=== PATIENT | male | born 1970 | race Caucasian/White ===

== ENCOUNTER 2024-08-05 10:04 | Inpatient (IN) | payer OTHER ==
[~2024-08-05] VITALS: Ht 170.2 cm; Wt 105.8 kg
[2024-08-05] VITALS (18 sets, daily range): BP systolic 122–190; BP diastolic 87–133
[~2024-08-05 10:04] MED LIST: ACYC800 PO
[2024-08-05 10:57] LABS: BASOPHILS ABSOLUTE AUTO 0.06 K/mm3 (0.00-0.23); BASOPHILS PERCENT AUTO 1 % (0-2); EOSINOPHILS ABSOLUTE AUTO 0.18 K/mm3 (0.00-0.68); EOSINOPHILS PERCENT AUTO 2 % (0-6); Hematocrit 46.3 % (37.0-53.0); Hemoglobin 16.3 g/dL (13.5-17.5); IMMATURE GRAN ABSOLUTE AUTO 0.03 K/mm3 (0.00-0.10); IMMATURE GRAN PERCENT AUTO 0 % (0-1); LYMPHOCYTES ABSOLUTE AUTO 1.72 K/mm3 (0.84-5.20); LYMPHOCYTES PERCENT AUTO 23 % (21-46); MONOCYTES ABSOLUTE AUTO 0.74 K/mm3 (0.16-1.47); MONOCYTES PERCENT AUTO 10 % (4-13); Mean Corpuscular HGB 29.8 pg (26.0-34.0); Mean Corpuscular HGB Conc 35.2 g/dL (31.5-36.5); Mean Corpuscular Volume 85 fL (80-100); Mean Platelet Volume 10.4 fL (9.1-12.4); NEUTROPHILS ABSOLUTE AUTO 4.81 K/mm3 (1.96-9.15); NEUTROPHILS PERCENT AUTO 64 % (41-73); Platelet Count 226 K/mm3 (150-400); RDW Coefficient Variation 12.2 % (11.7-14.2); RDW Standard Deviation 37.5 fL (35.1-46.3); Red Blood Cell Count 5.47 M/mm3 (4.30-5.90); White Blood Cell Count 7.54 K/mm3 (4.00-11.30)
[2024-08-05 11:08] LABS: International Normalized Ratio 1.03
[2024-08-05 11:11] LABS: Albumin, Blood 3.7 g/dL (3.4-5.0); Albumin/Globulin Ratio 0.8 (0.8-1.8); Bilirubin, Total 0.3 mg/dL (0.1-1.0); Bun/Creatinine Ratio 17.9 (12.0-20.0); Calcium, Blood 8.8 mg/dL (8.5-10.1); Creatinine, Blood 1.23 mg/dL (0.60-1.20); Globulin, Blood 4.4 g/dL (2.2-4.0); Magnesium, Blood 2.1 mg/dL (1.6-2.4); Potassium, Blood 4.1 mmol/L (3.5-5.5); Total Protein, Blood 8.1 g/dL (6.4-8.2)
[2024-08-05] MEDS ORDERED: NiCARdipine HCL 50 MG in NS 250 ML IV SCH (13:20)
[2024-08-05] MEDS ORDERED: HydrALAZINE HCl 20 MG / ML 1ML Vial IV PRN (15:05)
[2024-08-05] MEDS ORDERED: FLU VACC TS2024-25(6MOS UP)/PF 45 MCG/0.5 ML SYRINGE IM SCH (15:10)
[2024-08-05] MEDS ORDERED: Acetaminophen 325 MG TABLET PO PRN (15:10)
[2024-08-05] MEDS ORDERED: Metoprolol Succinate 50 MG TABCR PO SCH (16:00)
[2024-08-05] MEDS ORDERED: Ondansetron HCl 2 MG / ML 2ML Vial IV ONE (16:40)
[2024-08-05] MEDS ORDERED: Aspirin 325 MG Tab PO SCH (18:00)
--- NOTE | 2024-08-05 19:15 | NUR ---
Summary. Pt arrived to ICU at approximately 1650, pt alert/oriented, responding to questions and following commands. at bedside. PRN blood pressure medications used instead of nicardepine drip per Dr. Lemons, see emar. Pt failed bedside swallow with thin liquids, able to take po meds crushed in applesauce without difficulty. Stat MRI completed this evening. No other acute events, see chart for further details.
[2024-08-05] MEDS ORDERED: Labetalol HCL 5 MG/ML 4ML Injection (Single Dose) IV PRN (19:35)
[2024-08-05] MEDS ORDERED: Ondansetron HCl 2 MG / ML 2ML Vial IV PRN (20:45)
[2024-08-06] VITALS (38 sets, daily range): BP systolic 117–222; BP diastolic 74–135
--- NOTE | 2024-08-06 01:38 | NUR ---
HEADACHE PT C/O FRONTAL HEADACHE. STATES "I THINK IT'S FROM CAFFEINE WITHDRAWAL." DENIES NAUSEA. NEURO CHECKS UNCHANGED FROM PREVIOUS. FERCHO, 3MM. SLIGHT LEFT FACIAL DROOP NOTED WITH SMILING. DIRECTOR OF HEAD START EQUAL BILATERALLY. BLE STRENGTH AND MOVEMENT EQUAL.
[2024-08-06 03:35] LABS: Hematocrit 43.7 % (37.0-53.0); Hemoglobin 15.5 g/dL (13.5-17.5); Mean Corpuscular HGB 29.9 pg (26.0-34.0); Mean Corpuscular HGB Conc 35.5 g/dL (31.5-36.5); Mean Corpuscular Volume 84 fL (80-100); Mean Platelet Volume 10.5 fL (9.1-12.4); Platelet Count 262 K/mm3 (150-400); RDW Coefficient Variation 12.4 % (11.7-14.2); RDW Standard Deviation 38.4 fL (35.1-46.3); Red Blood Cell Count 5.18 M/mm3 (4.30-5.90); White Blood Cell Count 12.64 K/mm3 (4.00-11.30)
[2024-08-06 03:59] LABS: Anion Gap 13 mmol/L (3-11); Blood Urea Nitrogen 22 mg/dL (8-24); CHOL/HDL RATIO 3.4; CO2, Blood 24 mmol/L (21-32); Calcium, Blood 8.8 mg/dL (8.5-10.1); Chloride, Blood 107 mmol/L (98-108); Cholesterol 180 mg/dL (50-200); Creatinine, Blood 1.16 mg/dL (0.60-1.20); Glomerular Filtration Rate 74 (60-); Glucose, Blood 107 mg/dL (70-99); HDL Cholesterol 53 mg/dL (>39); LDL/HDL RATIO 2.1; Low Density Lipoprotein Chol 110 mg/dL (0-110); Sodium, Blood 140 mmol/L (136-145); Triglycerides 84 mg/dL (30-160); Very Low Density Lipoprot Chol 16 mg/dL (6-32)
--- NOTE | 2024-08-06 06:17 | NUR ---
END OF SHIFT REPORT: UPON SHIFT CHANGE, THIS RN DID A NEURO CHECK AND CHECKED PT EYES. UPON ASSESSMENT, ONE PUPIL APPEARED TO BE LARGER THAN THE OTHER. THIS RN CALLED DR TO REPORT. UPON NEURO CHECKS THROUGHOUT THE NIGHT, THE ISSUE SEEMED TO RESOLVE. PT HAS BEEN SLEEPING IN BETWEEN NEURO CHECKS AND NO OTHER ACUTE EVENTS OCCURRED.
[2024-08-06] MEDS ORDERED: HydroCHLOROthiazide 25 mg Tab PO SCH (09:00)
[2024-08-06] MEDS ORDERED: Aspirin 81 MG Chew PO SCH (09:00)
[2024-08-06] MEDS ORDERED: Clopidogrel Bisulfate 75 MG Tab PO SCH (09:00)
[2024-08-06] MEDS ORDERED: Enoxaparin 40 MG/0.4 ML SYR SC SCH (09:00)
[2024-08-06] MEDS ORDERED: Atorvastatin 40 MG Tab PO SCH (09:00)
--- NOTE | 2024-08-06 10:00 | NUR ---
Pt. is awake in bed and welcomes my visit. Pt. is pleasant, but displays evidence of being scare about the limitations of his disgnosis. Spouse is present and supportive. Considered matters of yessenia and belief. Facilitated a closer life review. Prayed with the Pt. Spouse and Pt. 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
[2024-08-06] MEDS ORDERED: HydrALAZINE HCl 20 MG / ML 1ML Vial IV PRN (10:35)
[2024-08-06] MEDS ORDERED: Metoprolol Succinate 50 MG TABCR PO SCH (11:00)
--- NOTE | 2024-08-06 13:28 | NUR ---
PT'S S/O CALLED THIS RN IN ROOM, PT FEELING "NOT RIGHT". BP AND HR REMAIN IN TREND OF DAY, ZOFRAN MEDICATION GIVEN FOR NAUSEA, NO NEUROLOGICAL CHANGES, HEADACHE IMPROVED, EMESIS BEGAN. ROUGHLY 400-500ML OF EMESIS, APPEARED TO BE THE LUNCH HE JUST CONSUMED. PT ABLE TO RETURN TO RESTING. HOT FLASHES GONE AND NOW COOL. CONTINUES WITH THE SYMPTOMS OF YAWNING, FLUSHING, AND HOT FLASHES WHEN SITS UPRIGHT IN THE BED, EVEN WITH SLOW MOVEMENT OF BED. HEADACHE WAS ONE SIDED, RIGHT TEMPORAL 09/14.
[2024-08-06] MEDS ORDERED: rOPINIRole HCl 0.25 MG Tab PO PRN (18:35)
--- NOTE | 2024-08-06 18:36 | NUR ---
JOANA CONTINUES WITH ELEVATED BLOOD PRESSURES, LEFT SIDED DEFICITS REMAIN. PT DENIES ANY NUMBNESS OR TINGLING IN THE EXTREMETIES, HEADACHE OCC WITH 3/10. TYLENOL HELPS. PT GETS NAUSEATED AND DIAPHORETIC WHEN SITS UPRIGHT, MEDICATED X 2 WITH ZOFRAN, EMESIS THE ONE TIME. REFUSED HIS DINNER TRAY. HAS BEEN UP TO THE TOILET X 2 TO VOID. UNABLE TO URINATE IN THE URINAL. 24 HOUR URINE COLLECTION HAS BEEN ORDERED, PT AND FAMILY MADE AWARE THAT THIS WILL START WITH NEXT VOID. MOM AND REMAIN IN ROOM, DAUGHTER AND SON VISITING NOW. DR. BISHOP HAS BEEN PHONED X 2 THIS SHIFT, WITH ORDERS REC'D. THIS LAST PHONE CALL IN REGARDS TO RESTLESS LEG. CONTINUES IN SINUS RHYTHM WITH HR IN THE 70S WHICH IS IMPROVED.
--- NOTE | 2024-08-06 19:45 | NUR ---
ASSESSMENT/ASSUMED CARE PT LYING IN BED WITH LIGHTS OFF AND A WASHCLOTH OVER EYES. ANSWERS QUESTIONS APPROP AND FOLLOWS INSTRUCTIONS. SPEECH SLOW, QUIET, BUT CLEAR. STYLE ADVISOR EQUAL. LEFT ARM SLIGHTLY WEAKER WHEN PT IS HOLDING IT UP. SLIGHT FACIAL DROOP TO LEFT SIDE NOTED WITH SMILE. HEART RATE REGULAR IN THE 80'S. BP ELEVATED. WILL CALL MD REGARDING HTN. LUNGS CLEAR ON ROOMAIR. RESP EVEN AND NONLABORED. NO EDEMA NOTED. IV TO RIGHT AC. SALINE LOCKED. UNABLE TO DRAW BLOOD, BUT FLUSH WITHOUT DIFFICULTY. IV LEFT HAND SALINE LOCKED. ABLE TO DRAW BLOOD AND FLUSH WITHOUT DIFFICULTY. PT MOVING SELF AROUND IN BED. AND DAUGHTER AT BEDSIDE.
--- NOTE | 2024-08-06 20:03 | NUR ---
CALL TO SPOKE TO DR CAMARENA REGARDING BP 216/135 AFTER RECEIVING TOPROL XL AND HYDRALAZINE. SEE NEW ORDERS
[2024-08-06] MEDS ORDERED: Labetalol HCL 5 MG/ML 4ML Injection (Single Dose) IV PRN (20:05)
[2024-08-06] MEDS ORDERED: HydrALAZINE HCl 20 MG / ML 1ML Vial IV ONE (20:05)
--- NOTE | 2024-08-06 20:54 | NUR ---
UP TO BATHROOM TO VOID THAN BACK TO BED. UNABLE TO VOID AT THIS TIME
[2024-08-07] VITALS (31 sets, daily range): BP systolic 131–196; BP diastolic 78–134
[2024-08-07 04:20] LABS: Hematocrit 46.4 % (37.0-53.0); Hemoglobin 15.7 g/dL (13.5-17.5); Mean Corpuscular HGB 30.1 pg (26.0-34.0); Mean Corpuscular HGB Conc 33.8 g/dL (31.5-36.5); Mean Platelet Volume 10.4 fL (9.1-12.4); Platelet Count 258 K/mm3 (150-400); RDW Coefficient Variation 12.9 % (11.7-14.2); RDW Standard Deviation 42.1 fL (35.1-46.3); Red Blood Cell Count 5.21 M/mm3 (4.30-5.90); White Blood Cell Count 13.15 K/mm3 (4.00-11.30)
[2024-08-07 04:53] LABS: Mean Corpuscular Volume 89 fL (80-100)
[2024-08-07 04:58] LABS: Bun/Creatinine Ratio 22.8 (12.0-20.0); Calcium, Blood 9.4 mg/dL (8.5-10.1); Creatinine, Blood 1.36 mg/dL (0.60-1.20); Free Thyroxine 1.67 ng/dL (0.70-1.60); Potassium, Blood 3.7 mmol/L (3.5-5.5); Thyroid Stimulating Hormone 0.278 uIU/mL (0.360-4.800)
--- NOTE | 2024-08-07 06:14 | NUR ---
SHIFT SUMMARY PT RESTED QUIETLY DURING THE NIGHT. NO NEURO CHANGES. SLIGHT FACIAL DROOP CONT. PT UP TO BATHROOM DURING THE NIGHT WITH ASSIST. VOIDING YELLOW URINE. 24 HR URINE IN PROGRESS. HTN, PT MED WITH HYDRALAZINE ONCE. REPORT TO ON COMING NURSE
[2024-08-07] MEDS ORDERED: METO50ER PO (10:46)
--- NOTE | 2024-08-07 17:13 | NUR ---
PT TRANSFERRING TO ROOM 357, REPORT GIVEN TO NURSE, PT AND FAMILY NOTIFIED OF MOVE, BELONGINGS GATHERED, PT ASSISTED TO WHEELCHAIR AND WAS TAKEN TO ROOM 357 BY CPT'S JESS AND MAGALY. AND CHILDREN IN ATTENDANCE.
[2024-08-07] MEDS ORDERED: Metoprolol Succinate 50 MG TABCR PO SCH (18:00)
--- NOTE | 2024-08-07 18:15 | NUR ---
SHIFT SUMMARY PT TRANSFERED FROM ICU 6 THIS SHIFT TO ROOM 357. PT IS A&O X4 AND ASSIST X1. FAMILY NOTED TO BE AT BEDSIDE. NOTED TO BE AGGITATED ABOUT PT MOVING FROM ICU STATED THEY WERE TOLD THEY WERE NOT GOING TO BE MOVING. PT ADMITTED FOR HTN. ORAL MEDICATION NOTED TO BE INCREASED TO BID. PT CONT TO HAVE PRN HTN MEDICATION NEEDED FOR SBP ABOVE 190. PT STATED HE DOESNT FEEL LIKE EATING BUT WAS WILLING TO TAKE A ENSURE. NOTED TO BE ON ON A SOFT BITE SIZE DIET. PT CONT WITH 24HR URINE THAT IS TO END AT MIDNIGHT.
--- NOTE | 2024-08-07 18:32 | NUR ---
Spiritual Care Attempted Attempted a visit approx. 1800. Pt. is somnolent in a darkened room. No spiritual care is given.
[2024-08-08] VITALS (9 sets, daily range): BP systolic 150–197; BP diastolic 92–119
[2024-08-08 05:49] LABS: Albumin, Blood 3.7 g/dL (3.4-5.0); Anion Gap 13 mmol/L (3-11); Blood Urea Nitrogen 31 mg/dL (8-24); Bun/Creatinine Ratio 22.5 (12.0-20.0); CO2, Blood 23 mmol/L (21-32); Calcium, Blood 9.4 mg/dL (8.5-10.1); Chloride, Blood 108 mmol/L (98-108); Creatinine, Blood 1.38 mg/dL (0.60-1.20); Glomerular Filtration Rate 60 (60-); Glucose, Blood 102 mg/dL (70-99); Phosphorus, Blood 3.6 mg/dL (2.5-4.9); Potassium, Blood 3.8 mmol/L (3.5-5.5); Sodium, Blood 140 mmol/L (136-145)
--- NOTE | 2024-08-08 06:20 | NUR ---
Shift Summary No acute changes, pt still weak on his L side with mild L sided facial droop. BP was elevated t/o the night, this AM it was 186/109 which was still too low to give IV hydralazine. A recheck 1 hour later was 179/103. Pt is AOx4, his is at the bedside. No c/o of pain or nausea.
[2024-08-08] MEDS ORDERED: Methimazole 10 MG Tab PO SCH (09:00)
[2024-08-08 10:42] LABS: BASOPHILS ABSOLUTE AUTO 0.07 K/mm3 (0.00-0.23); BASOPHILS PERCENT AUTO 1 % (0-2); EOSINOPHILS ABSOLUTE AUTO 0.09 K/mm3 (0.00-0.68); EOSINOPHILS PERCENT AUTO 1 % (0-6); Hematocrit 45.2 % (37.0-53.0); Hemoglobin 15.8 g/dL (13.5-17.5); IMMATURE GRAN ABSOLUTE AUTO 0.03 K/mm3 (0.00-0.10); IMMATURE GRAN PERCENT AUTO 0 % (0-1); LYMPHOCYTES ABSOLUTE AUTO 1.66 K/mm3 (0.84-5.20); LYMPHOCYTES PERCENT AUTO 15 % (21-46); MONOCYTES ABSOLUTE AUTO 0.84 K/mm3 (0.16-1.47); MONOCYTES PERCENT AUTO 8 % (4-13); Mean Corpuscular HGB 30.6 pg (26.0-34.0); Mean Corpuscular Volume 88 fL (80-100); Mean Platelet Volume 10.6 fL (9.1-12.4); NEUTROPHILS ABSOLUTE AUTO 8.37 K/mm3 (1.96-9.15); NEUTROPHILS PERCENT AUTO 76 % (41-73); Platelet Count 236 K/mm3 (150-400); RDW Coefficient Variation 12.8 % (11.7-14.2); RDW Standard Deviation 41.3 fL (35.1-46.3); Red Blood Cell Count 5.16 M/mm3 (4.30-5.90); White Blood Cell Count 11.06 K/mm3 (4.00-11.30)
--- NOTE | 2024-08-08 16:21 | NUR ---
PT IS HYPERTENSIVE, SPB >190 TREATED PER EMAR. PT DENIES CHEST PAIN, DIZZINESS, LIGHT HEADEDNESS, HEADACHE. NO NEW SYMPTOMS AT THIS TIME. WILL REASSESS BP 30 MIN AFTER MEDICATION ADMIN.
--- NOTE | 2024-08-08 16:22 | NUR ---
SUMMARY PT HYPERTENSIVE, PERMISSIVE ORDERED. PRN HYDRALAZINE GIVEN X1 TODAY. WILL CONTINUE TO MONITOR BP. PT HAD MANY VISITORS TODAY AND DID WORK WITH PHYSICAL THERAPY. PT DENIES C/P, DIZZINESS, HEADACHE, DENIES ANY CHANGES AT THIS TIME. FAMILY IN WITH PT. ABLE TO MAKE NEEDS KNOWN. L SIDE DEFICIT NOTED IN ASSESMENT. PT REFUSED TO USE CANE AND WALKER RECOMMENDED BY PHYSICAL THERAPY. SBA TO BATHROOM.
--- NOTE | 2024-08-08 16:34 | NUR ---
PT BP RESPOND WELL TO HYDRALAZINE, PT DENIES CHEST PAIN/PRESSURE, NO HEADACHE, DENIES DIZZINESS.
[2024-08-08] MEDS ORDERED: HydrALAZINE HCl 25 MG Tab PO SCH (18:00)
--- NOTE | 2024-08-08 18:26 | NUR ---
THIS RN CALLED TO BEDSIDE DUE TO PT HAVING HEADACHE. NEW ONSET PAIN AT THE BASE OF THE SKULL, DR. BISHOP NOTIFIED. PER MD GIVE PO METOPROLOL NOW.
--- NOTE | 2024-08-08 18:45 | NUR ---
DR. BISHOP AT BEDSIDE
--- NOTE | 2024-08-08 21:53 | NUR ---
THIS GUEST EXPERIENCE SPECIALIST CONTACTED THE ON-CALL HOSPITALIST . NEW T-ORDER FOR NORCO 5/325MG Q6HRS PRN ORDER RECEIVED AND ENTERED TO [employer], SEE EMAR. PT DENIES ANY ALLERGY WHEN ASKED PRIOR CONTACTING THE HOSPITALIST.
[2024-08-08] MEDS ORDERED: HYDROcodone 5-APAP 325 TAB PO PRN (21:55)
[2024-08-09] VITALS (10 sets, daily range): BP systolic 125–179; BP diastolic 75–106
--- NOTE | 2024-08-09 03:29 | NUR ---
SHIFT SUMMARY HYPERTENSIVE, PRN HYDRAZALINE ADMINISTERED ORDERED. NEW ORDER FOR PRN NORCO 5/325MG ADMINISTERED WITH GOOD EFFECTIVNESS FOR C/O H/A. PT'S REPORTS EFFECTIVE. LEFT SIDE BICYCLE RENTAL CLERK SLIGHTLY WEAKER. PT COVERING FOREHEAD WITH WASHCLOTH, MINIMAL INTERACTION WITH THE STAFF. NO ACUTE CHANGES DURING THIS SHIFT. BY THE BEDSIDE. TELE: NSR @60. PT DENIES PAIN/PRESSURE/SOB. BED AT THE LOWEST POSITION, CALL LIGHT W/I REACH. A/O X4,ABLE TO MAKE HIS NEEDS KNOWN AND COOPERATIVE WITH CARE.
--- NOTE | 2024-08-09 10:33 | NUR ---
PER DR. BISHOP ORDER AMLODIPINE 5MG NOW
[2024-08-09] MEDS ORDERED: AmLODIPine Besylate 5 MG Tab PO ONE (10:35)
[2024-08-09] MEDS ORDERED: Metoprolol Succinate 50 MG TABCR PO STA (14:45)
--- NOTE | 2024-08-09 16:51 | NUR ---
SUMMARY PT REMAINS HYPERTENSIVE. TREATED PER EMAR. PT UP TO CHAIR FOR MEALS, SBA WITH FWW. PT WALKED IN HALLS TODAY, RETURNED TO BED AFTER FEELING WEEK, ABLE TO MAKE NEEDS KNOWN. SLIGHT L SIDE DEFECIT NOTED, PT OVERALL FEELS BETTER TODAY. FAMILY AT BEDSIDE.
[2024-08-09] MEDS ORDERED: Metoprolol Succinate 50 MG TABCR PO SCH (21:00)
[2024-08-10] MEDS ORDERED: Polyethylene Glycol 3350 17 gm PO PRN (00:50)
--- NOTE | 2024-08-10 01:10 | NUR ---
THIS FARM CREW MEMBER CONTACTED THE ON-CALL HOSPITALIST . NEW ORDER IS ACTIVE FOR ALBERTO GONZALES.
[2024-08-10 03:00] VITALS: BP 122/73
--- NOTE | 2024-08-10 03:33 | NUR ---
SHIFT SUMMARY PT'S BP @HS 179/105, MEDICATED PER EMAR ORDERED. RECHECK DURING NIGHT HRS: 125/75. PRN NORCO ADMINISTERED AT HS WITH GOOD EFFECTIVNESS PER PT REPORT. PT REPORTS NO BM YESTERDAY, NEW ORDER FOR MIRALAX PRN AVAILABLE. BY THE BEDSIDE. PT IS A/O X4, ABLE TO MAKE HIS NEEDS KNOWN AND COOPERATIVE WITH CARE. BED AT THE LOWEST POSITION, CALL LIGHT W/I REACH. NO ACUTE EVENTS DURING THIS SHIFT.
[2024-08-10 05:35] LABS: Albumin, Blood 3.3 g/dL (3.4-5.0); Anion Gap 10 mmol/L (3-11); Blood Urea Nitrogen 29 mg/dL (8-24); Bun/Creatinine Ratio 24.6 (12.0-20.0); CO2, Blood 24 mmol/L (21-32); Calcium, Blood 8.8 mg/dL (8.5-10.1); Chloride, Blood 111 mmol/L (98-108); Creatinine, Blood 1.18 mg/dL (0.60-1.20); Glomerular Filtration Rate 72 (60-); Glucose, Blood 99 mg/dL (70-99); Phosphorus, Blood 3.4 mg/dL (2.5-4.9); Potassium, Blood 3.8 mmol/L (3.5-5.5); Sodium, Blood 141 mmol/L (136-145)
[2024-08-10 07:54] VITALS: BP 175/101
[2024-08-10 12:54] VITALS: BP 171/98
[2024-08-10 13:32] LABS: METANEPHRINE <0.10 nmol/L (0.00-0.49); NORMETANEPHRINE 0.68 nmol/L (0.00-0.89)
[2024-08-10 13:59] VITALS: BP 155/94
[2024-08-10] MEDS ORDERED: AmLODIPine Besylate 5 MG Tab PO SCH (14:00)
[2024-08-10 15:47] VITALS: BP 166/102
[2024-08-10] MEDS ORDERED: HydrALAZINE HCl 25 MG Tab PO STA (15:51)
--- NOTE | 2024-08-10 16:48 | NUR ---
SUMMARY PT CONTINUES TO BE HYPERTENSIVE. CLOSELY MONITORING FOR ANY CHANGES, SWALLOW EVAL COMPLETED, NO STRAWS, NO OTHER CHANGES. ALERT AND ORIENTED X4, ABLE TO EXPRESS NEEDS, FAMILY AT BEDSIDE
[2024-08-10 20:25] VITALS: BP 158/98
[2024-08-10] MEDS ORDERED: HydrALAZINE HCl 50 MG Tab PO SCH (21:00)
[2024-08-11] VITALS (13 sets, daily range): BP systolic 138–181; BP diastolic 81–127
--- NOTE | 2024-08-11 03:10 | NUR ---
SHIFT SUMMARY NO ACUTE EVENTS DURING THIS SHIFT. PER , PT IMPROVING. HTN CONTROLLED WITH SCHEDULED MEDICATIONS WELL. PRN NORCO 5/325MG ADMINISTERED AT HS FOR GENERALIZED BODY ACHES- PT REPORTS VERY EFFECTIVE. TELE: SINUS MAKENZIE @59. PT DENIES PAIN/PRESSURE/SOB. BY THE BEDSIDE. BED AT THE LOWEST POSITION, CALL LIGHT W/I REACH. PT IS ABLE TO MAKE HIS NEEDS KNOWN AND IS COOPERATIVE WITH CARE.
[2024-08-11] MEDS ORDERED: HydroCHLOROthiazide 25 mg Tab PO SCH (11:00)
--- NOTE | 2024-08-11 11:17 | NUR ---
NOTE PT BLOOD PRESSURE AT 0732 WAS 144/81. BLOOD PRESSURE ELEVATED TO 173/106 AT 0912. ASSESSED PT, PT STATED "NO CHEST PAIN AND NO SOB". CALLED TELE, PT HAVING NO EVENTS, PT HR WAS 63. GAVE SCHEDULED MEDS. CHECKED BLOOD PRESSURE AT 0957. PT BLOOD PRESSURE WAS 159/94. RECHECKED BLOOD PRESSURE AT 1036. BLOOD PRESSURE WAS 167/103. DR. THOMAS ORDERED ONE TIME DOSE OF ORETIC. DR. THOMAS ORDERED DISCHARGE POST RECEIVING SCHEDULED APRESOLINE AT 1400.
--- NOTE | 2024-08-11 12:40 | NUR ---
NOTE GAVE ONE TIME ORDER OF ORETIC AT 1050, RECHECKED BP AT 1136, IT WAS 159/104. PT REPORTS NO CHEST PAIN DISCOMFORT. RECHECKED BP AT 1213, IT WAS 152/111. CALLED DR. BISHOP, NO NEW ORDERS AT THIS TIME, REPORTS GIVE 1400 HYDRALAZINE THEN RECHECK BP AND NOTIFY HER.
[2024-08-11] MEDS ORDERED: AMLO5 PO (15:09)
[2024-08-11] MEDS ORDERED: ASPI81CH PO (15:10)
[2024-08-11] MEDS ORDERED: PLAVIX75 MG PO (15:11)
[2024-08-11] MEDS ORDERED: ATOR80 PO (15:11)
[2024-08-11] MEDS ORDERED: HYDRA50 PO (15:12)
[2024-08-11] MEDS ORDERED: ROPI.25 PO (15:13)
[2024-08-11] MEDS ORDERED: HYDCHL25 PO (15:13)
--- NOTE | 2024-08-11 17:13 | NUR ---
DISCHARGE NOTE PT A&OX4. PT ADMITED DUE TO HYPERTENSIVE URGENCY AND ACUTE RIGHT FRONTAL LOBE INFARCT. PT HAS SOME L SIDE DEFICITS, PT REPORTS NO CHEST PAIN/DISCOMFORT, NO HEADACHE OR PAIN. PT USES CANE. DR. BISHOP INSTRUCTED PT COULD GO HOME AFTER 1400 HYDRALAZINE. LAST BLOOD PRESSURE WAS 146/95. CALLED DR. [place] OFFICE, PER NURSE NOTIFY TO COORDINATE APPOINTMENT. DENTAL HYGENTIST STOPPED BY BEFORE PT DISCHARGED, REPORTED PT HAD THRUSH AND NOTIFY DOC. CALLED TO NOTIFY DR. DR. BISHOP CAME TO ASSESS PT, DR. BISHOP REPORTED PT WASN'T RECEIVING ANTIBIOTICS AT HOSPITAL, DR. BISHOP REPORTED IT WAS PROBABLY COATING FROM MEDICATION BECAUSE SHE REPORTED REMOVAL WITH TOOTHBRUSH. PT EDUCATED ON ASPRIN AND PLAVIX USE, THAT HE WILL NEED TO BE ON ASPRIN INDEFINETELY AND TO GET REFILLS BY PCP. PT EDUCATED ON TAKING BLOOD PRESSURE IN THE MORNING AND AT NIGHT, AND TO KEEP LOG FOR PCP. PT WENT WITH HARD SCRIPT FOR PT/OT/SPEECH REFERAL. COPY IN CHART. MEDS FAXED TO PHARMACY. EDUCATED ON DISCHARGE INSTRUCTIONS AND MEDS. PT LEFT WITH BELONGINGS. AT BEDSIDE DURING SHIFT. THIS RN ESCORTED PT TO PERSONAL VEHICLE VIA WHEELCHAIR.
[2024-08-12 01:59] LABS: CREATININE,URINE - PER 24H 3107 mg/d (800-2100); CREATININE,URINE - PER VOLUME 239 mg/dL; HOURS COLLECTED 24 hr; METANEPHRINE,UR - RATIO TO CRT 56 ug/g CRT (0-300); METANEPHRINE,URINE - PER 24H 174 ug/d (55-320); METANEPHRINE,URN - PER VOLUME 134 ug/L; NORMETANEPHRINE,U - PER VOLUME 703 ug/L; NORMETANEPHRINE,URN - PER 24H 914 ug/d (114-865); NORMETANEPHRINE,URN/CRT RATIO 294 ug/g CRT (0-400); TOTAL VOLUME 1300 mL
== END 2024-08-11 17:02 | disposition home or self-care (01) | DRG 65 ==
LOC: ER 10:04 → ICUE 15:03 → MEDS 08-07 17:09 → ENPENDDIS 08-11 16:58 → MEDS 08-11 17:02
PROVIDERS: Student in an Organized Health Care Education/Training Program; ADMIT Internal Medicine
DX: I63.9 Cerebral infarction, unspecified (principal); I16.1 Hypertensive emergency; I10 Essential (primary) hypertension; E05.20 Thyrotoxicosis with toxic multinodular goiter without thyrotoxic crisis or storm; Z90.49 Acquired absence of other specified parts of digestive tract; Z90.89 Acquired absence of other organs; Z98.890 Other specified postprocedural states; G51.0 Bell's palsy; Z87.81 Personal history of (healed) traumatic fracture; Z91.199 Patient's noncompliance with other medical treatment and regimen due to unspecified reason; R29.702 NIHSS score 2
CPT/HCPCS: 36415; 70450; 70496; 70498; 70551; 74230; 80048; 80053; 80061; 80069; 83735; 83835; 84439; 84443; 84481; 84484; 85025; 85027; 85610; 92526; 92610; 92611; 93005; 93010; 93306; 96365-59; 97110; 97112; 97116; 97162; 97165; 97530; 97535; 99285-25; A9270; G0378; J0360; J1650; J2405; J7050; Q9967

== ENCOUNTER 2025-03-31 13:40 | Emergency (ER) | payer OTHER ==
[~2025-03-31] VITALS: Ht 170.2 cm; Wt 98.9 kg
[~2025-03-31 13:40] MED LIST changes: +AMLO5 PO; +ASPI81CH PO; +ATOR80 PO; +HYDCHL25 PO; +HYDRA50 PO; +METO50ER PO; +PLAVIX75 MG PO; +ROPI.25 PO
[2025-03-31 14:48] LABS: BASOPHILS ABSOLUTE AUTO 0.06 K/mm3 (0.00-0.23); BASOPHILS PERCENT AUTO 1 % (0-2); EOSINOPHILS ABSOLUTE AUTO 0.22 K/mm3 (0.00-0.68); EOSINOPHILS PERCENT AUTO 3 % (0-6); Hematocrit 40.4 % (37.0-53.0); Hemoglobin 14.8 g/dL (13.5-17.5); IMMATURE GRAN ABSOLUTE AUTO 0.01 K/mm3 (0.00-0.10); IMMATURE GRAN PERCENT AUTO 0 % (0-1); LYMPHOCYTES ABSOLUTE AUTO 1.98 K/mm3 (0.84-5.20); LYMPHOCYTES PERCENT AUTO 25 % (21-46); MONOCYTES ABSOLUTE AUTO 0.83 K/mm3 (0.16-1.47); MONOCYTES PERCENT AUTO 10 % (4-13); Mean Corpuscular HGB Conc 36.6 g/dL (31.5-36.5); Mean Corpuscular Volume 82 fL (80-100); NEUTROPHILS ABSOLUTE AUTO 4.89 K/mm3 (1.96-9.15); NEUTROPHILS PERCENT AUTO 61 % (41-73); NRBC ABSOLUTE 0.00 K/mm3 (0.00-0.02); NRBC Auto 0.0 /100 WBC (0.0-0.2); Platelet Count 254 K/mm3 (150-400); RDW Coefficient Variation 12.1 % (11.7-14.2); RDW Standard Deviation 36.4 fL (35.1-46.3)
[2025-03-31 15:09] LABS: Alanine Aminotransfer (ALT/SGP 69.0 U/L (12-78); Albumin, Blood 3.6 g/dL (3.4-5.0); Albumin/Globulin Ratio 0.9 (0.8-1.8); Anion Gap 7.0 mmol/L (3-11); Aspartate Aminotrans (AST/SGOT 35.0 U/L (12-37); Bilirubin, Total 0.5 mg/dL (0.1-1.0); Blood Urea Nitrogen 30.0 mg/dL (8-24); CO2, Blood 29.0 mmol/L (21-32); Calcium, Blood 8.4 mg/dL (8.5-10.1); Chloride, Blood 103.0 mmol/L (98-108); Creatinine, Blood 1.67 mg/dL (0.60-1.20); Globulin, Blood 3.9 g/dL (2.2-4.0); Glucose, Blood 100.0 mg/dL (70-99); Potassium, Blood 3.3 mmol/L (3.5-5.5); Sodium, Blood 136.0 mmol/L (136-145); Total Protein, Blood 7.5 g/dL (6.4-8.2)
[2025-03-31 15:13] LABS: Prothrombin Time Results 11.7 Sec (9.7-11.5)
[2025-03-31] MEDS ORDERED: NS 1,000 ML IV SCH (15:30)
[2025-03-31 16:06] LABS: Source, Urine Clean Catch
[2025-03-31 16:10] LABS: Bilirubin, Urine Neg (Neg); Color, Urine Yellow (P-Yellow); Glucose Qualitative, Urine 4+ (Neg); Ketones, Urine Neg (Neg); Leukocyte Esterase, Urine Neg (Neg); Protein, Urine Neg (Neg); Specific Gravity, Urine 1.020 (1.003-1.022); Urobilinogen, Urine NORM (Normal)
[2025-03-31] MEDS ORDERED: POTA10T PO (17:01)
[2025-03-31 17:20] VITALS: BP 109/77
== END 2025-03-31 17:22 | disposition home or self-care (01) ==
LOC: ER 13:40
PROVIDERS: Physician Assistant
DX: G93.40 Encephalopathy, unspecified (principal); E87.6 Hypokalemia; E86.0 Dehydration; I69.354 Hemiplegia and hemiparesis following cerebral infarction affecting left non-dominant side; Z79.82 Long term (current) use of aspirin; Z79.899 Other long term (current) drug therapy; I10 Essential (primary) hypertension
CPT/HCPCS: 70450; 80053; 81003; 85025; 85610; 85730; 93005; 93010; 96360; 99284-25; A9270; J7030